=== PATIENT | female | born 1970 | race Caucasian/White ===

== ENCOUNTER → 2016-08-16 | Outpatient (CLI) | payer BC | END | disposition home or self-care (01) | LOC: CFH 14:14 | PROVIDERS: ATTEND Physician Assistant | DX: R05 Cough (principal); J06.9 Acute upper respiratory infection, unspecified | CPT/HCPCS: 71020 ==

== ENCOUNTER 2016-09-25 12:01 | Inpatient (IN) | payer BC ==
[~2016-09-25] VITALS: Ht 172.7 cm; Wt 74.0 kg
[2016-09-25] MEDS ORDERED: NAPR220C PO (12:50)
[2016-09-25] MEDS ORDERED: CYCL-259 PO (12:50)
[2016-09-25] MEDS ORDERED: IBUP200T5 PO (12:50)
[2016-09-25] MEDS ORDERED: BUDE10.22 INH (12:50)
[2016-09-25] MEDS ORDERED: CARISOPRODOL 350 MG TABLET PO ONE (13:00)
[2016-09-25] MEDS ORDERED: ONDANSETRON 2MG/ML, 2ML IVPush ONE (13:00)
[2016-09-25] MEDS ORDERED: KETOROLAC 30 MG/1 ML IVPush ONE (13:00)
[2016-09-25] MEDS ORDERED: SODIUM CHLORIDE FLUSH 10ML SYR IVF ONE (13:00)
[2016-09-25] MEDS ORDERED: methylPREDNISolone SOD SUCC 125 MG/2 ML IVPush ONE (13:00)
[2016-09-25] MEDS ORDERED: ONDANSETRON 2MG/ML, 2ML ONE (13:26)
[2016-09-25] MEDS ORDERED: KETOROLAC 30 MG/1 ML ONE (13:26)
[2016-09-25] MEDS ORDERED: methylPREDNISolone SOD SUCC 125 MG/2 ML ONE (13:26)
[2016-09-25] MEDS ORDERED: HYDROmorphone 1 MG/ML, 1ML ONE ×2 (13:26→14:45)
[2016-09-25] MEDS: HYDROmorphone 1 MG/ML, 1ML IVPush PRN ×2 (13:34→14:46)
[2016-09-25] MEDS ORDERED: GADOBUTROL 7.5 MMOL/7.5 ML PFS ONE (14:34)
[2016-09-25] MEDS ORDERED: MORPHINE SULFATE 4 MG/ML, 1ML IVPush PRN ×2 (15:00→17:00)
[2016-09-25] MEDS ORDERED: SODIUM CHLORIDE FLUSH 10ML SYR IVF PRN (15:00)
[2016-09-25] MEDS ORDERED: SODIUM CHLORIDE 0.9% 1,000 ML IV ONE (15:00)
[2016-09-25] MEDS ORDERED: ONDANSETRON 2MG/ML, 2ML IVPush PRN ×2 (15:00→17:00)
[2016-09-25] MEDS ORDERED: MULT-154 PO (15:13)
[2016-09-25] MEDS ORDERED: FLUO40CA2 PO (15:13)
[2016-09-25] MEDS ORDERED: ALBU18HF INH (15:13)
[2016-09-25] MEDS ORDERED: CINN500C2 PO (15:13)
[2016-09-25] MEDS ORDERED: CHRO1TAB6 PO (15:13)
[2016-09-25] MEDS ORDERED: IBUP800T PO (15:13)
[2016-09-25] MEDS ORDERED: BUDE10.2 INH (15:13)
[2016-09-25] MEDS ORDERED: OMEG1CAP12 PO (15:13)
[2016-09-25] MEDS ORDERED: FLUTICASONE/VILANTEROL 200-25MCG/INH INH SCH ×2 (16:00→21:00)
[2016-09-25] MEDS ORDERED: CYCLOBENZAPRINE 10 MG TABLET PO PRN (16:00)
[2016-09-25] MEDS ORDERED: HYDROcodone/APAP 5/325 TABLET PO PRN (17:00)
[2016-09-25 17:37] VITALS: BP 112/73
[2016-09-25] MEDS: DEXAMETHASONE 4 MG/ML, 1ML IVPush SCH ×2 (18:40→21:48)
[2016-09-25] MEDS: ENOXAPARIN 40 MG/0.4 ML SQ SCH (18:44)
[2016-09-25 19:48] VITALS: BP 116/75
[2016-09-25] MEDS: METHOCARBAMOL 500 MG TABLET PO SCH (21:48)
[2016-09-25] MEDS ORDERED: LORazepam 1MG TABLET PO PRN (23:30)
[2016-09-26 01:33] VITALS: BP 100/60
[2016-09-26] MEDS: DEXAMETHASONE 4 MG/ML, 1ML IVPush SCH ×4 (04:30→22:26)
[2016-09-26] MEDS: METHOCARBAMOL 500 MG TABLET PO SCH ×4 (06:27→22:26)
[2016-09-26 06:34] LABS: BLOOD UREA NITROGEN 10 mg/dL (7-18)
[2016-09-26] MEDS: MULTIVITAMIN 1 TABLET PO SCH (07:30)
[2016-09-26] MEDS: FLUTICASONE/VILANTEROL 200-25MCG/INH INH SCH (09:00)
[2016-09-26] MEDS: FLUOXETINE 20 MG CAPSULE PO SCH (09:29)
[2016-09-26] MEDS ORDERED: BISACODYL 5 MG EC TABLET PO PRN (13:00)
[2016-09-26] MEDS ORDERED: BISACODYL 10 MG SUPP PR PRN (13:00)
[2016-09-26] MEDS ORDERED: POLYETHYLENE GLYCOL 17 GM PACKET PO PRN (13:00)
[2016-09-26] MEDS: ENOXAPARIN 40 MG/0.4 ML SQ SCH (17:20)
[2016-09-26] MEDS: POLYETHYLENE GLYCOL 17 GM PACKET PO PRN (17:30)
[2016-09-26] MEDS: SENNA/DOCUSATE TABLET PO SCH ×2 (17:30→21:00)
[2016-09-26] MEDS: VALACYCLOVIR 500MG TABLET PO SCH (23:00)
[2016-09-27] MEDS: DEXAMETHASONE 4 MG/ML, 1ML IVPush SCH ×4 (04:30→22:30)
[2016-09-27] MEDS: METHOCARBAMOL 500 MG TABLET PO SCH ×4 (06:00→23:25)
[2016-09-27] MEDS: FLUTICASONE/VILANTEROL 200-25MCG/INH INH SCH (09:00)
[2016-09-27] MEDS: VALACYCLOVIR 500MG TABLET PO SCH ×2 (09:00→14:30)
[2016-09-27] MEDS: SENNA/DOCUSATE TABLET PO SCH ×3 (11:00→21:00)
[2016-09-27] MEDS: FLUOXETINE 20 MG CAPSULE PO SCH (11:00)
[2016-09-27] MEDS: MULTIVITAMIN 1 TABLET PO SCH (11:00)
[2016-09-27] MEDS ORDERED: TRAZODONE 50MG TABLET PO PRN (14:30)
[2016-09-27] MEDS ORDERED: MAGNESIUM HYDROXIDE 8%, 30ML UDC PO PRN (14:30)
[2016-09-27 14:36] VITALS: BP 125/74
[2016-09-27] MEDS: POLYETHYLENE GLYCOL 17 GM PACKET PO PRN (16:01)
[2016-09-27] MEDS: ENOXAPARIN 40 MG/0.4 ML SQ SCH (17:50)
[2016-09-27] MEDS ORDERED: BISACODYL 5 MG EC TABLET PO PRN (20:39)
[2016-09-28 04:00] VITALS: BP 121/66
[2016-09-28] MEDS: METHOCARBAMOL 500 MG TABLET PO SCH ×2 (06:23→11:45)
[2016-09-28 06:30] LABS: BLOOD UREA NITROGEN 21 mg/dL (7-18)
[2016-09-28 06:32] VITALS: BP 117/68
[2016-09-28 07:33] LABS: ASPARTATE AMINO TRANSFERASE 20 U/L (15-37)
[2016-09-28] MEDS: VALACYCLOVIR 500MG TABLET PO SCH (09:00)
[2016-09-28] MEDS ORDERED: TRAZ50TA18 PO (09:52)
[2016-09-28] MEDS ORDERED: TRAM50TA2 PO (09:52)
[2016-09-28] MEDS ORDERED: METH500T7 PO (09:52)
[2016-09-28] MEDS ORDERED: POLY17PO5 PO (09:52)
[2016-09-28] MEDS ORDERED: DEXA4TAB PO (09:58)
[2016-09-28] MEDS: FLUOXETINE 20 MG CAPSULE PO SCH (10:09)
[2016-09-28] MEDS: SENNA/DOCUSATE TABLET PO SCH (10:09)
[2016-09-28] MEDS: DEXAMETHASONE 4 MG/ML, 1ML IVPush SCH (10:09)
[2016-09-28] MEDS: MULTIVITAMIN 1 TABLET PO SCH (10:09)
[2016-09-28] MEDS ORDERED: PNEUMOCOCCAL 23 VACCINE IM-VACC ONE (12:30)
[2016-09-28 13:15] LABS: DIFF TOTAL CELLS COUNTED 100 CELL DIFF
[2016-09-29 17:12] LABS: VERIFY COUNTS? YES
[2016-09-30 11:59] LABS: BLOOD UREA NITROGEN 16 mg/dL (7-18)
[2016-09-30 12:00] LABS: ASPARTATE AMINO TRANSFERASE 10 U/L (15-37)
== END 2016-09-28 13:30 | disposition home or self-care (01) | DRG 551 ==
LOC: SUATTDRO 15:40 → ED 16:07 → EDIP 16:20 → 3NE 16:39 → DCLOUNGE 09-28 12:50
PROVIDERS: ADMIT Internal Medicine; ATTEND Internal Medicine
DX: M54.5 Low back pain (principal); R53.2 Functional quadriplegia; F32.9 Major depressive disorder, single episode, unspecified; T38.0X5A Adverse effect of glucocorticoids and synthetic analogues, initial encounter; D72.828 Other elevated white blood cell count; Z88.1 Allergy status to other antibiotic agents; Z98.1 Arthrodesis status
CPT/HCPCS: 36415; 72158; 80048; 80053; 85025; 90732; 96374; 96375; A9585; J1100; J1170; J1650; J1885; J2405; J2930

== ENCOUNTER → 2017-07-31 | Outpatient (CLI) | payer BC ==
[~2017-07-31] MED LIST: ALBU18HF INH; BUDE10.2 INH; BUDE10.22 INH; CHRO1TAB6 PO; CINN500C2 PO; CYCL-259 PO; DEXA4TAB PO; FLUO40CA2 PO; IBUP-1223 PO; IBUP-1484 PO; METH500T7 PO; MULT-154 PO; NAPR220C PO; OMEG1CAP23 PO; POLY17PO5 PO; TRAM50TA2 PO; TRAZ50TA18 PO
== END | disposition home or self-care (01) ==
LOC: CFH 07:46
PROVIDERS: ATTEND Nurse Practitioner Family
DX: N63.20 Unspecified lump in the left breast, unspecified quadrant (principal); N64.4 Mastodynia
CPT/HCPCS: 77065

== ENCOUNTER → 2018-01-30 | Outpatient (CLI) | payer BC ==
[~2018-01-30] MED LIST changes: +TRAZ-136 PO; -TRAZ50TA18 PO
== END | disposition home or self-care (01) ==
LOC: CFH 11:10
PROVIDERS: ATTEND Nurse Practitioner Family
DX: M79.604 Pain in right leg (principal)